=== PATIENT | female | born 1995 | race Hispanic/Latino ===

== ENCOUNTER 2017-11-28 16:14 | Emergency (ER) | payer MEDICAID ==
[~2017-11-28 16:14] MED LIST: ISOVUE-370 76%-LOCM 1 ML ONE; Iopamidol 370 76% 50 ML VIAL FS ONE
[2017-11-28 17:11] LABS: Bilirubin Negative (Negative); Blood, Urine Negative (Negative); Clarity CLOUDY (Clear); Glucose, Urine (Dipstick) Negative (Negative); Leukocyte Small (Negative); Nitrite Positive (Negative); Protein, Urine (Dipstick) Negative (Neg-Trace); Specific Gravity, Urine 1.024 (1.002-1.036)
[2017-11-28 17:14] LABS: Bacteria/HPF 4+ HPF (None Seen); Hyaline Casts/LPF 0-3 HYALINE CAST LPF (0-3 Hyaline); Pathc Cast-AUWi Flag 0.14 (0-2.49); RBC/HPF 0-3 HPF (0-3)
[2017-11-28 17:17] LABS: Pregnancy Test - Urine (BHCG) Negative (Negative); Pregu Control Background? CLEAR/WHITE (CLR/WHITE); Pregu Control Bar Appear? YES (CONTROL BAR); Specific Gravity 1.024 (1.002-1.036)
[2017-11-28 17:41] LABS: #Eosinphils 0.2 thou/uL (0.0-0.7); #Lymphocytes 3.2 thou/uL (1.20-3.40); #Monocytes 1.1 thou/uL (0.11-0.59); #Neutrophils 5.9 thou/uL (1.40-6.50); %Basophils 0.2 % (0.0-1.0); %Eosinophils 2.3 % (0.0-10.0); %Lymphocytes 30.6 % (21.0-51.0); %Monocytes 10.5 % (0.0-10.0); %Neutrophils 56.4 % (42.0-75.0); Hemoglobin 13.9 g/dL (12.0-16.0); Mean Corpuscular HGB CONC 34.6 g/dL (32.0-36.0); Mean Corpuscular Hemoglobin 31.7 pg (27.0-31.0); Mean Corpuscular Volume 91.6 fl (81.0-99.0); Mean Platelet Volume 8.2 fL (7.4-10.4); Platelet Count 256 thou/uL (130-400); RBC Distribution Width 12.2 % (11.5-14.5); White Blood Cell (WBC) Count 10.5 thou/uL (4.8-10.8)
[2017-11-28 18:01] LABS: ALT (SGPT) 25 U/L (8-55); AST (SGOT) 16 U/L (5-34); Albumin 4.3 g/dL (3.5-5.0); Alkaline Phosphatase 87 U/L (40-150); Anion Gap 9 mmol/L (10-20); BUN (Urea Nitrogen) 11 mg/dL (7.0-18.7); Bilirubin, Total 0.4 mg/dL (0.2-1.2); Calc. Creatinine Clearance 0 mL/min (70-130); Calcium 9.5 mg/dL (7.8-10.44); Carbon Dioxide 26 mmol/L (22-29); Chloride 106 mmol/L (98-107); Estimated GFR-MDRD Greater than 90; Globulin 2.8 g/dL (2.4-3.5); Glucose 79 mg/dL (70-105); Lipase 11 U/L (8-78); Potassium 3.8 mmol/L (3.5-5.1); Protein, Total 7.1 g/dL (6.0-8.3); Sodium 137 mmol/L (136-145)
--- NOTE | 2017-11-28 20:38 | CT ---
CT ABDOMEN AND PELVIS WITH CONTRAST: 11/28/17 HISTORY: Abdominal pain. COMPARISON: None. FINDINGS: Lung bases are clear. No pericardial effusion. There is a hypodensity in hepatic segment VII, too small to characterize. The spleen is unremarkable as well as the pancreas. No intrahepatic or extrahepatic biliary dilatatio n. No hydroureteronephrosis. Both adrenal glands are unremarkable. The appendix is visualized and is normal. Small ileocolic mesenteric lymph nodes. Aortoiliac contour is normal. No free intraperitoneal gas or fluid. Left ovarian cyst is present. Mild diverticular disease sigmoid colon without active inflammation. IMPRESSION: Low grade ileocolic mesenteric adenitis. Normal appendix. POS: [facility]
== END 2017-11-28 21:18 | disposition home or self-care (01) ==
LOC: ERS 16:14
DX: I88.0 Nonspecific mesenteric lymphadenitis (principal); N39.0 Urinary tract infection, site not specified; J45.909 Unspecified asthma, uncomplicated
CPT/HCPCS: 36415; 74177; 80053; 81003; 81015; 81025; 83690; 85025

== ENCOUNTER 2017-12-02 16:18 | Emergency (ER) | payer MEDICAID ==
[2017-12-02 16:57] LABS: #Eosinphils 0.2 thou/uL (0.0-0.7); #Lymphocytes 2.9 thou/uL (1.20-3.40); #Monocytes 0.9 thou/uL (0.11-0.59); #Neutrophils 6.6 thou/uL (1.40-6.50); %Basophils 0.3 % (0.0-1.0); %Eosinophils 2.1 % (0.0-10.0); %Lymphocytes 27.2 % (21.0-51.0); %Monocytes 8.5 % (0.0-10.0); %Neutrophils 61.9 % (42.0-75.0); Hemoglobin 14.9 g/dL (12.0-16.0); Mean Corpuscular HGB CONC 34.6 g/dL (32.0-36.0); Mean Corpuscular Hemoglobin 31.9 pg (27.0-31.0); Mean Platelet Volume 8.5 fL (7.4-10.4); Platelet Count 262 thou/uL (130-400); RBC Distribution Width 12.1 % (11.5-14.5); Red Blood Cell (RBC) Count 4.68 mill/uL (4.20-5.40); White Blood Cell (WBC) Count 10.7 thou/uL (4.8-10.8)
[2017-12-02 16:57] LABS: Bilirubin Negative (Negative); Blood, Urine Negative (Negative); Clarity CLEAR (Clear); Glucose, Urine (Dipstick) Negative (Negative); Leukocyte Small (Negative); Nitrite Negative (Negative); Pregnancy Test - Urine (BHCG) Negative (Negative); Pregu Control Background? CLEAR/WHITE (CLR/WHITE); Pregu Control Bar Appear? YES (CONTROL BAR); Protein, Urine (Dipstick) Trace mg/dL (Neg-Trace); Specific Gravity, Urine 1.022 (1.002-1.036); pH, Urine 7.5 (5.0-9.0)
[2017-12-02 16:59] LABS: Bacteria/HPF 4+ HPF (None Seen); Hyaline Casts/LPF 0-3 HYALINE CAST LPF (0-3 Hyaline); Pathc Cast-AUWi Flag 0.29 (0-2.49); RBC/HPF 0-3 HPF (0-3)
[2017-12-02 17:01] LABS: Specific Gravity 1.022 (1.002-1.036)
[2017-12-02 17:17] LABS: ALT (SGPT) 18 U/L (8-55); AST (SGOT) 15 U/L (5-34); Albumin 4.3 g/dL (3.5-5.0); Alkaline Phosphatase 95 U/L (40-150); Anion Gap 11 mmol/L (10-20); BUN (Urea Nitrogen) 10 mg/dL (7.0-18.7); Bilirubin, Total 0.3 mg/dL (0.2-1.2); Calc. Creatinine Clearance 0 mL/min (70-130); Calcium 9.2 mg/dL (7.8-10.44); Carbon Dioxide 23 mmol/L (22-29); Chloride 108 mmol/L (98-107); Estimated GFR-MDRD Greater than 90; Globulin 3.2 g/dL (2.4-3.5); Glucose 88 mg/dL (70-105); Lipase 14 U/L (8-78); Potassium 3.9 mmol/L (3.5-5.1); Protein, Total 7.5 g/dL (6.0-8.3); Sodium 138 mmol/L (136-145)
[2017-12-02] MEDS ORDERED: Morphine 4 MG/ML VIAL ONE (18:32)
[2017-12-02] MEDS ORDERED: Ketorolac Tromethamine 30 MG/ML VIAL ONE (18:32)
[2017-12-02] MEDS ORDERED: Lidocaine 1% PF 5 ML VIAL ONE (19:44)
[2017-12-02] MEDS ORDERED: cefTRIAXone\\ROCEPHIN 250 MG VIAL ONE (19:44)
[2017-12-03 22:11] LABS: Chlamydia by PCR DETECTED (NotDetected); GC by PCR Not Detected (NotDetected)
== END 2017-12-02 20:14 | disposition home or self-care (01) ==
LOC: ERS 16:18
DX: N73.9 Female pelvic inflammatory disease, unspecified (principal); J45.909 Unspecified asthma, uncomplicated
CPT/HCPCS: 80053; 81003; 81015; 81025; 83690; 84702; 85025; 87480; 87491; 87510; 87591; 87660; 96372; 96374; J0696; J1885; J2001; J2270

== ENCOUNTER 2018-01-27 21:21 | Emergency (ER) | payer MEDICAID, SELFPAY ==
--- NOTE | 2018-01-27 22:51 | RAD ---
LEFT FOOT THREE VIEWS: 01/27/2018 HISTORY: Left foot pain with onset of symptoms one day ago. FINDINGS: The Lisfranc joint is normally aligned. There is no fracture, dislocation, or other osseous abnormal ity involving the left foot. IMPRESSION: No acute osseous abnormality, left foot. POS: [facility]
== END 2018-01-28 00:04 | disposition home or self-care (01) ==
LOC: SCSER 21:21
DX: S90.32XA Contusion of left foot, initial encounter (principal); B37.3 Candidiasis of vulva and vagina; J45.909 Unspecified asthma, uncomplicated; W22.01XA Walked into wall, initial encounter
CPT/HCPCS: 87480; 87491; 87510; 87591; 87660

== ENCOUNTER 2018-05-16 16:44 | Emergency (ER) | payer SELFPAY ==
[2018-05-16] MEDS ORDERED: Ondansetron PF 4 MG/2 ML Vial ONE (17:01)
[2018-05-16 17:22] LABS: #Basophils 0.1 thou/uL (0.0-0.2); #Eosinphils 0.2 thou/uL (0.0-0.7); #Lymphocytes 1.7 thou/uL (1.20-3.40); #Monocytes 0.7 thou/uL (0.11-0.59); #Neutrophils 4.2 thou/uL (1.40-6.50); %Basophils 0.8 % (0.0-1.0); %Eosinophils 2.4 % (0.0-10.0); %Lymphocytes 25.2 % (21.0-51.0); %Monocytes 9.7 % (0.0-10.0); Hemoglobin 13.2 g/dL (12.0-16.0); Mean Corpuscular HGB CONC 34.3 g/dL (32.0-36.0); Mean Corpuscular Volume 87.4 fL (78.0-98.0); Mean Platelet Volume 9.8 fL (7.4-10.4); Platelet Count 195 thou/uL (130-400); Red Blood Cell (RBC) Count 4.38 mill/uL (4.20-5.40); White Blood Cell (WBC) Count 6.8 thou/uL (4.8-10.8)
[2018-05-16 17:36] LABS: ALT (SGPT) 39 U/L (8-55); AST (SGOT) 20 U/L (5-34); Albumin 4.3 g/dL (3.5-5.0); Alkaline Phosphatase 80 U/L (40-150); Anion Gap 15 mmol/L (10-20); BUN (Urea Nitrogen) 8 mg/dL (7.0-18.7); Bilirubin, Total 0.3 mg/dL (0.2-1.2); Calc. Creatinine Clearance 0 mL/min (70-130); Calcium 9.3 mg/dL (7.8-10.44); Carbon Dioxide 22 mmol/L (22-29); Chloride 106 mmol/L (98-107); Estimated GFR-MDRD Greater than 90; Globulin 3.1 g/dL (2.4-3.5); Glucose 85 mg/dL (70-105); Lipase 13 U/L (8-78); Magnesium 2.1 mg/dL (1.6-2.6); Potassium 3.6 mmol/L (3.5-5.1); Protein, Total 7.4 g/dL (6.0-8.3); Sodium 139 mmol/L (136-145)
[2018-05-16 17:45] LABS: Bilirubin Negative (Negative); Blood, Urine Negative (Negative); Clarity Clear (Clear); Glucose, Urine (Dipstick) Negative (Negative); Leukocyte Negative (Negative); Nitrite Negative (Negative); Protein, Urine (Dipstick) Negative (Neg-Trace); Urobilinogen 0.2 mg/dL (0.2-1.0)
[2018-05-16 17:47] LABS: Pregnancy Test - Urine (BHCG) Negative (Negative); Pregu Control Background? CLEAR/WHITE (CLR/WHITE); Pregu Control Bar Appear? YES (CONTROL BAR)
[2018-05-18 19:32] LABS: Chlamydia by PCR Not Detected (NotDetected); GC by PCR Not Detected (NotDetected)
== END 2018-05-16 18:52 | disposition home or self-care (01) ==
LOC: SCSER 16:44
DX: R11.2 Nausea with vomiting, unspecified (principal); R19.7 Diarrhea, unspecified; N76.0 Acute vaginitis; J45.909 Unspecified asthma, uncomplicated
CPT/HCPCS: 80053; 81003; 81025; 83690; 83735; 85025; 87480; 87491; 87510; 87591; 87660; 87804; 96361; 96374; J2405

== ENCOUNTER 2018-06-06 12:55 | Emergency (ER) | payer SELFPAY ==
--- NOTE | 2018-06-06 13:41 | RAD ---
LEFT FOOT 3 VIEWS: HISTORY: Fall. COMPARISON: Radiograph of 01/27/2018. FINDINGS: There is no acute fracture or malalignment. Soft tissues are unremarkable. The Lisfranc interval nara ears to be maintained. IMPRESSION: No acute fracture or malalignment. POS: [facility]
[2018-06-06 14:44] LABS: Pregnancy Test - Urine (BHCG) Negative (Negative); Pregu Control Background? CLEAR/WHITE (CLR/WHITE); Pregu Control Bar Appear? YES (CONTROL BAR); Specific Gravity 1.026 (1.002-1.036)
[2018-06-06] MEDS ORDERED: traMADol HCl 50 MG TAB ONE (14:52)
== END 2018-06-06 15:21 | disposition home or self-care (01) ==
LOC: ERS 12:55
DX: M79.672 Pain in left foot (principal)
CPT/HCPCS: 81025

== ENCOUNTER 2018-11-23 20:31 | Emergency (ER) | payer MEDICAID ==
[2018-11-23 20:54] LABS: Bilirubin Negative (Negative); Blood, Urine Negative (Negative); Clarity Slightly Cloudy (Clear); Glucose, Urine (Dipstick) Negative (Negative); Leukocyte Negative (Negative); Nitrite Negative (Negative); Protein, Urine (Dipstick) Negative (Neg-Trace); Specific Gravity, Urine 1.025 (1.005-1.030); Urobilinogen 0.2 mg/dL (0.2-1.0)
--- NOTE | 2018-11-23 22:12 | ULT ---
Exam: Transabdominal and endovaginal pelvic ultrasound HISTORY:Right lower quadrant pain. Serum beta-hCG cc of 2600 COMPARISON: None TECHNIQUE: Transabdominal and endovaginal imaging of the pelvis is performed. Ovaries are interrogate d with grayscale, color flow, Doppler imaging and spectral wave form analysis FINDINGS: Uterus: No myometrial masses Uterus measurin.0 x 5.1 x 9.1 cm cm. Endometrium: 0.5 cm anechoic focus with questionable yolk sac. No evidence of pole. Gestational age based upon sac diameter is 5 weeks 2 days. No subchorionic hemorrhage. A forementioned anechoic focus is difficult to localize and may be within or just adjacent to the endometrial stripe. Endometrium diameter: Not measured cm. . Free fluid: None Left ovary: 2.1 x 1.7 x 1.5 cm anechoic focus, suggesting ovarian cyst. Left ovary measurements: 3.3 x 2.1 x 2.7 cm Right ovary: Limited evaluation due to location of the ovary. Right ovary measurement: Cannot be obtained due to location of the ovary. Ovarian Doppler: There is vascular flow to the left ovary. Right ovarian vascular flow cannot be determined. IMPRESSION: 1. Questionable gestational sac. Position of the sac is difficult to determine whether it is within o r adjacent to the endometrium. Continued surveillance is recommended. Follow-up ultrasound and serial beta-hCG studies are recommended. 2. Left ovarian cyst.
[2018-11-25 01:21] LABS: Chlamydia by PCR DETECTED (NotDetected); GC by PCR Not Detected (NotDetected)
== END 2018-11-23 20:52 | disposition home or self-care (01) ==
LOC: SCSER 20:31
DX: O99.89 Other specified diseases and conditions complicating pregnancy, childbirth and the puerperium (principal); R10.31 Right lower quadrant pain; O99.511 Diseases of the respiratory system complicating pregnancy, first trimester; J45.909 Unspecified asthma, uncomplicated; Z3A.01 Less than 8 weeks gestation of pregnancy
CPT/HCPCS: 36415; 76856; 81003; 84702; 87480; 87491; 87510; 87591; 87660

== ENCOUNTER 2018-12-19 11:24 | Day surgery (SDC) | payer OTHER ==
[2018-12-18 17:01] VITALS: BMI 33.5
[2018-12-19] MEDS ORDERED: Fentanyl 100 MCG/2 ML VIAL ONE ×2 (13:19→15:05)
[2018-12-19] MEDS ORDERED: Misoprostol 200 MCG TAB ONE (14:17)
[2018-12-19] MEDS ORDERED: Ondansetron PF 4 MG/2 ML Vial IVP PRN (14:35)
[2018-12-19] MEDS ORDERED: HYDROcodone/Acetaminophen 5/325 mg Tablet PO PRN (14:35)
[2018-12-19] MEDS ORDERED: Lactated Ringer's 1,000 ML IV SCH (14:45)
[2018-12-19] MEDS ORDERED: HYDROcodone/Acetaminophen 5/325 mg Tablet ONE (16:24)
--- NOTE | 2018-12-19 21:52 | OP ---
DATE OF PROCEDURE: 12/19/2018 PREOPERATIVE DIAGNOSIS: Missed . POSTOPERATIVE DIAGNOSIS: Missed . PROCEDURE PERFORMED: Suction D&C. ANESTHESIA: TIVA. DESCRIPTION OF PROCEDURE: After informed consent was obtained from the patient , she was taken to the OR, where anesthesia was administered. She was then placed in the dorsal lithotomy position. She was prepped and draped in the usual sterile fashion. A weighted vaginal speculum was placed. The cervix was visualized with a right angle retractor. Anterior lip of the cervix was grasped with a single tooth tenaculum. The uterus was sounded to 14 mm. The cervix was sequentially dilated in order to pass an 8 mm curved suction curette. Uterine contents were evacuated with the suction curette. Sharp curettage was then performed until a gritty texture was felt in all 4 quadrants. Suction curettage was performed once more and scanty blood and tissue fragments were removed. The procedure was terminated. Tenaculum was removed. Hemostasis of the anterior cervical lip was observed after pressure with a sponge stick. 800 mcg of Cytotec was placed rectally at the end of the procedure. She tolerated the procedure and suffered no significant acute complications. She was taken to Recovery in stable condition. EBL: 250 mL. FINDINGS: Normal tubes and ovaries and normal appearing cervix. Job ID: [id number] [facility]
== END 2018-12-19 17:00 | disposition home or self-care (01) ==
LOC: SDC 11:24
PROVIDERS: ATTEND Family Medicine
PROC: 10D17ZZ Extraction of Products of Conception, Retained, Via Natural or Artificial Opening (ICD-10-PCS; principal; 2018-12-19)
DX: O02.1 Missed abortion (principal); J45.20 Mild intermittent asthma, uncomplicated; Z88.2 Allergy status to sulfonamides
CPT/HCPCS: 88305; J3010

== ENCOUNTER 2019-03-24 10:26 | Emergency (ER) | payer OTHER ==
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
[2019-03-24] MEDS ORDERED: Ibuprofen 800 MG TAB ONE (13:21)
[2019-03-24] MEDS ORDERED: Acetaminophen 500 MG TAB ONE (13:22)
== END 2019-03-24 14:03 | disposition home or self-care (01) ==
LOC: ERS 10:26
DX: S20.02XA Contusion of left breast, initial encounter (principal); S50.11XA Contusion of right forearm, initial encounter; V89.2XXA Person injured in unspecified motor-vehicle accident, traffic, initial encounter
CPT/HCPCS: 71045

== ENCOUNTER 2019-03-31 17:34 | Emergency (ER) | payer OTHER | END 2019-03-31 18:04 | disposition home or self-care (01) | LOC: SCSER 17:34 | DX: J01.90 Acute sinusitis, unspecified (principal); B96.89 Other specified bacterial agents as the cause of diseases classified elsewhere; J45.909 Unspecified asthma, uncomplicated | CPT/HCPCS: 99283 ==

== ENCOUNTER 2019-06-21 12:15 | Emergency (ER) | payer OTHER | END 2019-06-21 13:54 | disposition home or self-care (01) | LOC: ERS 12:15 | DX: B34.9 Viral infection, unspecified (principal); J45.909 Unspecified asthma, uncomplicated; F32.9 Major depressive disorder, single episode, unspecified | CPT/HCPCS: 99283 ==